=== PATIENT | male | born 1960 | race African-American/Black ===

== ENCOUNTER 2023-01-22 11:32 | Observation (INO) ==
[2023-01-22 11:42] VITALS: BMI 27.1
--- NOTE | 2023-01-22 12:12 | DR.EXTPAIN ---
HPI Time seen Time Seen by Provider: 01/22/23 12:11 PCP Primary Care Physician: MARTINA/ODELL Complaint/Symptoms Chief Complaint:: PT STATES HE HAS BEEN HAVING LEFT HIP PAIN FOR 1 WEEK. STATES HE ALSO HAS AN INFECTED LEFT SHOULDER FROM A SKIN CANCER REMOVAL. FOUL SMELL NOTED FROM AREA. DR. BAIN IN [place] DID THE REMOVAL. Source History Provided: Patient Mode of arrival Mode of Arrival: Ambulatory Timing Onset of Chief Complaint: 01/15/23 PMH PMH Past Medical History: Yes Past Medical History: Hypertension Past Medical History Comment: SKIN CANCER Past Surgical History: Yes Surgical History: Ortho Surgery Past Surgical History Comment: SKIN CANCER REMOVAL Family History History of Family Medical Conditions: Yes Family Medical History: Diabetes Mellitus and Coronary Artery Disease Social History Does patient currently use any type of tobacco product: No Have you used tobacco products in the last 12 months: No Type of Tobacco Use: None Does any household member use tobacco: No Alcohol Use: None Do you use any recreational Drugs:: No Lives With: Family Lives Where: Home Infectious screening In the last 2 months have you had wt loss of >10#?: NO Have you had fever, night sweats or hemotysis?: No Have you traveled outside the country in the last 6 months?: No Isolation: Standard PE Vital Signs Vitals: Temperature 98.2 F Pulse Rate 101 Respiratory Rate 20 Blood Pressure 130/63 O2 Sat by Pulse Oximetry 98 ROR Labs Reviewed Result Diagrams: 01/24/23 05:05 01/24/23 05:05 Laboratory: 01/22/23 14:11 Chest Wound Gram Stain - Final 01/22/23 14:11 Chest Wound Culture - Preliminary WBC 10.4 X10^3/uL (3.6-10.0) H 01/22/23 12:33 RBC 2.65 X10^6/uL (4.7-6.0) L 01/22/23 12:33 Hgb 7.6 g/dL (13.5-18.0) L 01/22/23 12:33 Hct 22.6 % (42.0-54.0) L 01/22/23 12:33 MCV 85.0 fL (80.0-100.0) 01/22/23 12:33 MCH 28.5 pg (27.0-34.0) 01/22/23 12:33 MCHC 33.5 g/dL (33.0-35.0) 01/22/23 12:33 RDW 16.3 % (11.6-16.5) 01/22/23 12:33 Plt Count 575 X10^3/uL (150.0-450.0) H 01/22/23 12:33 MPV 6.4 fL (7.4-11.0) L 01/22/23 12:33 Neut % (Auto) 77.6 % (42.0-75.0) H 01/22/23 12:33 Lymph % (Auto) 11.4 % (21.0-51.0) L 01/22/23 12:33 [place] % (Auto) 6.9 % (0.0-13.0) 01/22/23 12:33 Eos % (Auto) 3.3 % (0.9-2.9) H 01/22/23 12:33 Baso % (Auto) 0.8 % (0.2-1.0) 01/22/23 12:33 Neut # (Auto) 8.1 x10^3/uL (2.2-4.8) H 01/22/23 12:33 Lymph # (Auto) 1.2 X10^3/uL (1.3-2.9) L 01/22/23 12:33 [place] # (Auto) 0.7 x10^3/uL (0.3-0.8) 01/22/23 12:33 Eos # (Auto) 0.3 x10^3/uL (0.0-0.2) H 01/22/23 12:33 Baso # (Auto) 0.1 X10^3/uL (0.0-0.1) 01/22/23 12:33 Absolute Nucleated RBC 0.0 /100WBC 01/22/23 12:33 Sodium 132 mmol/L (136-145) L 01/22/23 12:33 Corrected Sodium TNP 01/22/23 12:33 Potassium 4.0 mmol/L (3.5-5.1) 01/22/23 12:33 Chloride 98 mmol/L (98-107) 01/22/23 12:33 Carbon Dioxide 27.7 mmol/L (21-32) 01/22/23 12:33 BUN 7 mg/dL (7-18) 01/22/23 12:33 Creatinine 1.08 mg/dL (0.70-1.30) 01/22/23 12:33 Est GFR (MDRD) Af Amer > 60 (>60) 01/22/23 12:33 Est GFR (MDRD) Non-Af > 60 (>60) 01/22/23 12:33 Glucose 106 mg/dL (65-99) H 01/22/23 12:33 Lactic Acid 1.0 mmol/L (0.4-2.0) 01/22/23 12:23 Calcium 8.7 mg/dL (8.5-10.1) 01/22/23 12:33 Corrected Calcium 9.7 mg/dL (8.5-10.1) 01/22/23 12:33 Total Bilirubin 1.10 mg/dL (0.2-1.0) H 01/22/23 12:33 AST 13 Units/L (15-37) L 01/22/23 12:33 ALT 18 Units/L (12-78) 01/22/23 12:33 Alkaline Phosphatase 114 Units/L (46-116) 01/22/23 12:33 Total Protein 7.8 g/dL (6.4-8.2) 01/22/23 12:33 Albumin 2.7 g/dL (3.4-5.0) L 01/22/23 12:33 Globulin 5.1 g/dL (2.5-4.5) H 01/22/23 12:33 Albumin/Globulin Ratio 0.5 Ratio (1.1-2.1) L 01/22/23 12:33 Opioid Opioid Risk Tool Total: 0 Total Score Risk Category: Low Risk Copyright: Jesse PUENTES predicting aberrant behaviors Discharge Plan Diagnosis Discharge Problem: Wound infection Discharge Plan Patient Disposition: 09 ADMITTED INPATIENT Condition: Stable
[2023-01-22] MEDS ORDERED: NS 1,000 ML IV 1,000 ML ONE (12:29)
[2023-01-22] MEDS: NS 1,000 ML IV 1,000 ML IV SCH ×2 (12:32→21:04)
[2023-01-22 12:49] LABS: BASOPHILS # (AUTO) 0.1 X10^3/uL (0.0-0.1); BASOPHILS % (AUTO) 0.8 % (0.2-1.0); EOSINOPHILS # (AUTO) 0.3 x10^3/uL (0.0-0.2); EOSINOPHILS % (AUTO) 3.3 % (0.9-2.9); HEMATOCRIT 22.6 % (42.0-54.0); HEMOGLOBIN 7.6 g/dL (13.5-18.0); LYMPHOCYTES # (AUTO) 1.2 X10^3/uL (1.3-2.9); LYMPHOCYTES % (AUTO) 11.4 % (21.0-51.0); MEAN CORPUSCULAR HEMOGLOBIN 28.5 pg (27.0-34.0); MEAN CORPUSCULAR HGB CONC 33.5 g/dL (33.0-35.0); MEAN PLATELET VOLUME 6.4 fL (7.4-11.0); MONOCYTES # (AUTO) 0.7 x10^3/uL (0.3-0.8); MONOCYTES % (AUTO) 6.9 % (0.0-13.0); NEUTROPHILS # (AUTO) 8.1 x10^3/uL (2.2-4.8); NEUTROPHILS % (AUTO) 77.6 % (42.0-75.0); PLATELET COUNT 575 X10^3/uL (150.0-450.0); RED BLOOD COUNT 2.65 X10^6/uL (4.7-6.0); RED CELL DISTRIBUTION WIDTH 16.3 % (11.6-16.5); WHITE BLOOD COUNT 10.4 X10^3/uL (3.6-10.0)
[2023-01-22 12:58] LABS: ALANINE AMINOTRANSFERASE 18 Units/L (12-78); ALBUMIN 2.7 g/dL (3.4-5.0); ALKALINE PHOSPHATASE 114 Units/L (46-116); ASPARTATE AMINO TRANSFERASE 13 Units/L (15-37); BLOOD UREA NITROGEN 7 mg/dL (7-18); CALCIUM 8.7 mg/dL (8.5-10.1); CARBON DIOXIDE 27.7 mmol/L (21-32); CHLORIDE 98 mmol/L (98-107); COR CA(FOR HYPOALB) 9.7 mg/dL (8.5-10.1); CREATININE 1.08 mg/dL (0.70-1.30); GLUCOSE 106 mg/dL (65-99); SODIUM 132 mmol/L (136-145); TOTAL PROTEIN 7.8 g/dL (6.4-8.2); eGFR NON BLACK RACES > 60 (>60)
[2023-01-22] MEDS ORDERED: VANCOMYCIN IV *PREMIX 1 G/200 ML BAG 1 G/200 ML PIGGYBACK IV ONE ×2 (16:29→16:41)
[2023-01-22] MEDS ORDERED: ZOFRAN TAB 4 MG PO PRN (17:17)
[2023-01-22] MEDS ORDERED: NS 1,000 ML IV 1,000 ML IV SCH (17:17)
[2023-01-22] MEDS ORDERED: MORPHINE SULFATE INJ 4 MG IVP PRN (17:17)
[2023-01-22] MEDS: VANCOMYCIN IV *PREMIX 1 G/200 ML BAG 1 G/200 ML PIGGYBACK IV SCH (21:04)
[2023-01-23] MEDS: NS 1,000 ML IV 1,000 ML IV SCH ×6 (01:45→23:41)
--- NOTE | 2023-01-23 02:40 | RAD ---
HISTORYHAVING LEFT HIP PAIN FOR 1 WEEK. STATES HE ALSO HAS AN INFECTED LEFT SHOULDER FROM A SKIN CANCER REMOVAL. Relevant Clinical InformationSTUDYCHEST, 1 VIEWCOMPARISONNoneFINDINGSThe trachea is midline. The cardiac silhouette is mildly enlarged.. The lungs are clear without focal infiltrate or effusion. The bony thorax is unremarkable. Spinal stabilization rods and pedicular screws as well as interbody implant present in the lower thoracic region.IMPRESSIONMild cardiomegalyNo active cardiopulmonary disease.Electronically signed by: Ankush Del Rio (January 23, 2023 02:39:19)
--- NOTE | 2023-01-23 02:41 | RAD ---
HISTORYHAVING LEFT HIP PAIN FOR 1 WEEK. STATES HE ALSO HAS AN INFECTED LEFT SHOULDER FROM A SKIN CANCER REMOVAL. Relevant Clinical InformationSTUDYHIP, LEFTCOMPARISONFINDINGSA single frontal view of the pelvis demonstrates the pelvic ring to be intact. No evidence for acute cortical disruption or dislocation of the hip can be observed. Frog leg views of the hip fails to demonstrate evidence for fracture or significant joint abnormality.IMPRESSIONNegative examElectronically signed by: Ankush Del Rio (January 23, 2023 02:39:41)
[2023-01-23 06:44] LABS: ALANINE AMINOTRANSFERASE 15 Units/L (12-78); ALBUMIN 2.1 g/dL (3.4-5.0); ALKALINE PHOSPHATASE 98 Units/L (46-116); ASPARTATE AMINO TRANSFERASE 11 Units/L (15-37); BLOOD UREA NITROGEN 5 mg/dL (7-18); CALCIUM 7.8 mg/dL (8.5-10.1); CARBON DIOXIDE 25.5 mmol/L (21-32); CHLORIDE 104 mmol/L (98-107); COR CA(FOR HYPOALB) 9.3 mg/dL (8.5-10.1); CREATININE 0.96 mg/dL (0.70-1.30); GLUCOSE 95 mg/dL (65-99); SODIUM 138 mmol/L (136-145); TOTAL PROTEIN 6.4 g/dL (6.4-8.2); eGFR NON BLACK RACES > 60 (>60)
[2023-01-23 06:49] LABS: BASOPHILS # (AUTO) 0.2 X10^3/uL (0.0-0.1); BASOPHILS % (AUTO) 1.7 % (0.2-1.0); EOSINOPHILS # (AUTO) 0.6 x10^3/uL (0.0-0.2); EOSINOPHILS % (AUTO) 7.2 % (0.9-2.9); LYMPHOCYTES # (AUTO) 1.4 X10^3/uL (1.3-2.9); LYMPHOCYTES % (AUTO) 15.3 % (21.0-51.0); MEAN CORPUSCULAR HEMOGLOBIN 28.4 pg (27.0-34.0); MEAN CORPUSCULAR HGB CONC 33.6 g/dL (33.0-35.0); MEAN CORPUSCULAR VOLUME 84.6 fL (80.0-100.0); MEAN PLATELET VOLUME 6.8 fL (7.4-11.0); MONOCYTES # (AUTO) 0.8 x10^3/uL (0.3-0.8); MONOCYTES % (AUTO) 8.8 % (0.0-13.0); PLATELET COUNT 553 X10^3/uL (150.0-450.0); RED BLOOD COUNT 2.22 X10^6/uL (4.7-6.0); RED CELL DISTRIBUTION WIDTH 16.2 % (11.6-16.5)
[2023-01-23 06:56] LABS: HEMATOCRIT 18.8 % (42.0-54.0); HEMOGLOBIN 6.3 g/dL (13.5-18.0)
[2023-01-23] MEDS: VANCOMYCIN IV *PREMIX 1 G/200 ML BAG 1 G/200 ML PIGGYBACK IV SCH ×2 (09:24→21:29)
[2023-01-23] MEDS: VSL#3 PO SCH (09:24)
[2023-01-23] MEDS ORDERED: NS 500 ML IV 500 ML IV ONE (13:58)
--- NOTE | 2023-01-23 15:08 | DR.H&P ---
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 Pt has a known sarcoma that is being followed by his surgeon in [place]. He states that his hip has been hurting him more, reports it as being aching. He denies any trauma. Labs/imaging: Wbc 10.2>9.0, Hgb 7.6>6.3, Na 138, K 4.0, Creatinine 0.96, Glucose 95, Blood/Wound culture pending, CXR and XR left hip has no acute findings. Pt admitted for infection of wound. Will consult general surgery for recommendations, infection appears to be superficial. Restart home medications. Continue IVF NS@125ml/h, received vancomycin in ED, will start on antibiotics: IV levaquin 750mg daily. Anemia today, will transfuse 1 unit packed red blood ce lls. Continue to closely monitor and follow up labs. Past Medical History Past Medical History: Hypertension Past Surgical History Surgical History: Ortho Surgery Family History Family Medical History: Diabetes Mellitus and Coronary Artery Disease Social History Does patient currently use any type of tobacco product: No Have you used tobacco products in the last 12 months: No Type of Tobacco Use: None Does any household member use tobacco: No Alcohol Use: None Drug Use: None Medications Home Medications: No Known Allergies Allergy (Verified 01/22/23 17:33) CONTINUE taking the following medications amlodipine 10 mg tablet 10 mg PO QDAY 01/22/23 [History] hydrocodone 5 mg-acetaminophen 325 mg tablet 1 - 2 tab PO Q6H PRN Pain 01/22/23 [History] ondansetron HCl 8 mg tablet 8 mg PO Q8H PRN nausea/vomiting 01/22/23 [History] Labs Result Diagrams: 01/23/23 05:45 01/23/23 05:45 Labs: 01/22/23 14:11 Chest Wound Gram Stain - Final 01/22/23 14:11 Chest Wound Culture - Preliminary Laboratory WBC 9.0 X10^3/uL (3.6-10.0) 01/23/23 05:45 RBC 2.22 X10^6/uL (4.7-6.0) L 01/23/23 05:45 Hgb 6.3 g/dL (13.5-18.0) L* 01/23/23 05:45 Hct 18.8 % (42.0-54.0) L* 01/23/23 05:45 MCV 84.6 fL (80.0-100.0) 01/23/23 05:45 MCH 28.4 pg (27.0-34.0) 01/23/23 05:45 MCHC 33.6 g/dL (33.0-35.0) 01/23/23 05:45 RDW 16.2 % (11.6-16.5) 01/23/23 05:45 Plt Count 553 X10^3/uL (150.0-450.0) H 01/23/23 05:45 MPV 6.8 fL (7.4-11.0) L 01/23/23 05:45 Neut % (Auto) 67.0 % (42.0-75.0) 01/23/23 05:45 Lymph % (Auto) 15.3 % (21.0-51.0) L 01/23/23 05:45 [place] % (Auto) 8.8 % (0.0-13.0) 01/23/23 05:45 Eos % (Auto) 7.2 % (0.9-2.9) H 01/23/23 05:45 Baso % (Auto) 1.7 % (0.2-1.0) H 01/23/23 05:45 Neut # (Auto) 6.0 x10^3/uL (2.2-4.8) H 01/23/23 05:45 Lymph # (Auto) 1.4 X10^3/uL (1.3-2.9) 01/23/23 05:45 [place] # (Auto) 0.8 x10^3/uL (0.3-0.8) 01/23/23 05:45 Eos # (Auto) 0.6 x10^3/uL (0.0-0.2) H 01/23/23 05:45 Baso # (Auto) 0.2 X10^3/uL (0.0-0.1) H 01/23/23 05:45 Absolute Nucleated RBC 0.0 /100WBC 01/23/23 05:45 Sodium 138 mmol/L (136-145) 01/23/23 05:45 Corrected Sodium TNP 01/23/23 05:45 Potassium 4.0 mmol/L (3.5-5.1) 01/23/23 05:45 Chloride 104 mmol/L (98-107) 01/23/23 05:45 Carbon Dioxide 25.5 mmol/L (21-32) 01/23/23 05:45 BUN 5 mg/dL (7-18) L 01/23/23 05:45 Creatinine 0.96 mg/dL (0.70-1.30) 01/23/23 05:45 Est GFR (MDRD) Af Amer > 60 (>60) 01/23/23 05:45 Est GFR (MDRD) Non-Af > 60 (>60) 01/23/23 05:45 Glucose 95 mg/dL (65-99) 01/23/23 05:45 Lactic Acid 1.0 mmol/L (0.4-2.0) 01/22/23 12:23 Calcium 7.8 mg/dL (8.5-10.1) L 01/23/23 05:45 Corrected Calcium 9.3 mg/dL (8.5-10.1) 01/23/23 05:45 Total Bilirubin 0.90 mg/dL (0.2-1.0) 01/23/23 05:45 AST 11 Units/L (15-37) L 01/23/23 05:45 ALT 15 Units/L (12-78) 01/23/23 05:45 Alkaline Phosphatase 98 Units/L (46-116) 01/23/23 05:45 Total Protein 6.4 g/dL (6.4-8.2) 01/23/23 05:45 Albumin 2.1 g/dL (3.4-5.0) L 01/23/23 05:45 Globulin 4.3 g/dL (2.5-4.5) 01/23/23 05:45 Albumin/Globulin Ratio 0.5 Ratio (1.1-2.1) L 01/23/23 05:45 Blood Type O POSITIVE 01/23/23 09:00 Antibody Screen Negative 01/23/23 09:00 Crossmatch See Detail 01/23/23 09:00 Review of Systems Constitutional: No Symptoms Reported Eyes: No Symptoms Reported ENT: No Symptoms Reported Respiratory: No Symptoms Reported Cardiovascular: No Symptoms Reported Gastrointestinal: No Symptoms Reported Genitourinary: No Symptoms Reported Musculoskeletal: Shoulder Pain (left shoulder sarcoma, superficial purulence ) and Other (left hip pain) Skin: No Symptoms Reported Neurological: No Symptoms Reported Physical Exam Vital Signs: Temperature 98.9 F Pulse Rate [Right Brachial] 104 Pulse Rate 101 Respiratory Rate 18 Blood Pressure [Left Arm] 130/66 Blood Pressure [Right Arm] 132/68 Blood Pressure 130/63 O2 Sat by Pulse Oximetry 96 Oriented: Normal Eyes: Normal Ear: Normal Nose: Normal Throat: Normal Respiratory: Clear Throughout Cardiovascular: Normal : Normal Auscultation: Bowel Sounds: Normal Palpation: Normal Tenderness: Normal Skin: Normal Musculoskeletal: Shoulder (left shoulder large sarcoma noted with superficial malodorous ) Psychiatric: Normal Mood Description: Calm and Appropriate Affect: Normal Speech Pattern: Clear and Appropriate Assessment/Plan (1) Wound infection: Status: Acute Plan: Wound culture pending Continue IV levaquin (2) Anemia: Status: Acute Plan: Transfuse 1 unit packed red blood cells Trend hgb Review H&P Reviewed: Yes Patient was examined?: Yes
[2023-01-23] MEDS: LEVAQUIN PREMIX IV 750 MG 750 MG/150 ML BAG IV SCH (18:40)
[2023-01-23] MEDS ORDERED: PHARMACY COMMENT IV NR (20:30)
[2023-01-23 21:00] LABS: HEMOGLOBIN 7.8 g/dL (13.5-18.0)
[2023-01-23 21:17] LABS: CREATININE 1.01 mg/dL (0.70-1.30); VANCOMYCIN,TROUGH 10.1 ug/mL (15-20)
[2023-01-23] MEDS: RESTORIL CAP 15 MG PO PRN (21:29)
[2023-01-24] MEDS: NS 1,000 ML IV 1,000 ML IV SCH ×4 (05:06→20:34)
[2023-01-24 06:29] LABS: BASOPHILS # (AUTO) 0.1 X10^3/uL (0.0-0.1); BASOPHILS % (AUTO) 0.6 % (0.2-1.0); EOSINOPHILS # (AUTO) 0.5 x10^3/uL (0.0-0.2); EOSINOPHILS % (AUTO) 4.7 % (0.9-2.9); HEMOGLOBIN 7.2 g/dL (13.5-18.0); LYMPHOCYTES # (AUTO) 1.3 X10^3/uL (1.3-2.9); LYMPHOCYTES % (AUTO) 12.6 % (21.0-51.0); MEAN CORPUSCULAR HGB CONC 34.3 g/dL (33.0-35.0); MEAN CORPUSCULAR VOLUME 84.4 fL (80.0-100.0); MEAN PLATELET VOLUME 6.8 fL (7.4-11.0); MONOCYTES # (AUTO) 0.8 x10^3/uL (0.3-0.8); MONOCYTES % (AUTO) 7.6 % (0.0-13.0); NEUTROPHILS # (AUTO) 7.6 x10^3/uL (2.2-4.8); NEUTROPHILS % (AUTO) 74.5 % (42.0-75.0); PLATELET COUNT 517 X10^3/uL (150.0-450.0); RED BLOOD COUNT 2.49 X10^6/uL (4.7-6.0); RED CELL DISTRIBUTION WIDTH 15.6 % (11.6-16.5); WHITE BLOOD COUNT 10.2 X10^3/uL (3.6-10.0)
[2023-01-24 06:47] LABS: ALANINE AMINOTRANSFERASE 12 Units/L (12-78); ALKALINE PHOSPHATASE 92 Units/L (46-116); ASPARTATE AMINO TRANSFERASE 15 Units/L (15-37); BLOOD UREA NITROGEN 5 mg/dL (7-18); CALCIUM 7.9 mg/dL (8.5-10.1); CARBON DIOXIDE 22.3 mmol/L (21-32); CHLORIDE 105 mmol/L (98-107); COR CA(FOR HYPOALB) 9.5 mg/dL (8.5-10.1); CREATININE 0.94 mg/dL (0.70-1.30); GLUCOSE 103 mg/dL (65-99); POTASSIUM 3.9 mmol/L (3.5-5.1); SODIUM 138 mmol/L (136-145); TOTAL PROTEIN 6.4 g/dL (6.4-8.2); eGFR NON BLACK RACES > 60 (>60)
[2023-01-24] MEDS: VSL#3 PO SCH (09:30)
--- NOTE | 2023-01-24 09:53 | PCM.PROG ---
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 Pt has a known sarcoma that is being followed by his surgeon in [place]. This morning her reports feeling a little better. No acute events overnight. Labs/imaging: Wbc 1 0.2, Hgb 7.2, Plt 517, Na 138, K 3.9, Creatinine 0.94, Glucose 103, Blood/Wound culture pending. General surgery consulted, no surgical intervention at this time. Home medications have been resumed. Pt is currently receiving IVF NS@125ml/h and antibiotics: IV levaquin 750mg daily. Hgb responded after transfusing 1 unit packed red blood cells, will order another unit today. Continue to closely monitor and follow up labs. Past Medical Family Social History Allergies: Allergies No Known Allergies Allergy (Verified 01/22/23 17:33) Review of Systems ROS changes noted: See HPI Vital Signs and I&O's Vital Signs: Temperature 98 F Pulse Rate [Right Brachial] 106 Pulse Rate 101 Respiratory Rate 22 Blood Pressure [Left Arm] 127/71 Blood Pressure [Right Arm] 132/68 Blood Pressure 130/63 O2 Sat by Pulse Oximetry 97 Intake and Output: Intake & Output 01/21/23 01/22/23 01/23/23 01/24/23 23:59 23:59 23:59 23:59 Intake Total 951 / 951 5808 / 5808 838 / 838 Output Total 3450 / 3450 600 / 600 Balance 951 / 951 2358 / 2358 238 / 238 Physical Exam Oriented: Normal Eyes: Normal Ear: Normal Nose: Normal Throat: Normal Respiratory: Normal Cardiovascular: Normal : Normal Auscultation: Bowel Sounds: Normal Tenderness: Normal Skin: Normal Musculoskeletal: Shoulder (left shoulder large sarcoma noted with superficial malodorous ) Psychiatric: Normal Mood Description: Calm and Appropriate Affect: Normal Speech Pattern: Clear and Appropriate Laboratory and Diagnostics Result Diagrams: 01/24/23 05:05 01/24/23 05:05 Labs: 01/22/23 14:11 Chest Wound Gram Stain - Final 01/22/23 14:11 Chest Wound Culture - Preliminary Laboratory WBC 10.2 X10^3/uL (3.6-10.0) H 01/24/23 05:05 RBC 2.49 X10^6/uL (4.7-6.0) L 01/24/23 05:05 Hgb 7.2 g/dL (13.5-18.0) L 01/24/23 05:05 Hct 21.0 % (42.0-54.0) L 01/24/23 05:05 MCV 84.4 fL (80.0-100.0) 01/24/23 05:05 MCH 29.0 pg (27.0-34.0) 01/24/23 05:05 MCHC 34.3 g/dL (33.0-35.0) 01/24/23 05:05 RDW 15.6 % (11.6-16.5) 01/24/23 05:05 Plt Count 517 X10^3/uL (150.0-450.0) H 01/24/23 05:05 MPV 6.8 fL (7.4-11.0) L 01/24/23 05:05 Neut % (Auto) 74.5 % (42.0-75.0) 01/24/23 05:05 Lymph % (Auto) 12.6 % (21.0-51.0) L 01/24/23 05:05 [place] % (Auto) 7.6 % (0.0-13.0) 01/24/23 05:05 Eos % (Auto) 4.7 % (0.9-2.9) H 01/24/23 05:05 Baso % (Auto) 0.6 % (0.2-1.0) 01/24/23 05:05 Neut # (Auto) 7.6 x10^3/uL (2.2-4.8) H 01/24/23 05:05 Lymph # (Auto) 1.3 X10^3/uL (1.3-2.9) 01/24/23 05:05 [place] # (Auto) 0.8 x10^3/uL (0.3-0.8) 01/24/23 05:05 Eos # (Auto) 0.5 x10^3/uL (0.0-0.2) H 01/24/23 05:05 Baso # (Auto) 0.1 X10^3/uL (0.0-0.1) 01/24/23 05:05 Absolute Nucleated RBC 0.1 /100WBC 01/24/23 05:05 Sodium 138 mmol/L (136-145) 01/24/23 05:05 Corrected Sodium TNP 01/24/23 05:05 Potassium 3.9 mmol/L (3.5-5.1) 01/24/23 05:05 Chloride 105 mmol/L (98-107) 01/24/23 05:05 Carbon Dioxide 22.3 mmol/L (21-32) 01/24/23 05:05 BUN 5 mg/dL (7-18) L 01/24/23 05:05 Creatinine 0.94 mg/dL (0.70-1.30) 01/24/23 05:05 Est GFR (MDRD) Af Amer > 60 (>60) 01/24/23 05:05 Est GFR (MDRD) Non-Af > 60 (>60) 01/24/23 05:05 Glucose 103 mg/dL (65-99) H 01/24/23 05:05 Lactic Acid 1.0 mmol/L (0.4-2.0) 01/22/23 12:23 Calcium 7.9 mg/dL (8.5-10.1) L 01/24/23 05:05 Corrected Calcium 9.5 mg/dL (8.5-10.1) 01/24/23 05:05 Total Bilirubin 1.00 mg/dL (0.2-1.0) 01/24/23 05:05 AST 15 Units/L (15-37) 01/24/23 05:05 ALT 12 Units/L (12-78) 01/24/23 05:05 Alkaline Phosphatase 92 Units/L (46-116) 01/24/23 05:05 Total Protein 6.4 g/dL (6.4-8.2) 01/24/23 05:05 Albumin 2.0 g/dL (3.4-5.0) L 01/24/23 05:05 Globulin 4.4 g/dL (2.5-4.5) 01/24/23 05:05 Albumin/Globulin Ratio 0.5 Ratio (1.1-2.1) L 01/24/23 05:05 Vancomycin Trough 10.1 ug/mL (15-20) L 01/23/23 20:46 Blood Type O POSITIVE 01/23/23 09:00 Antibody Screen Negative 01/23/23 09:00 Crossmatch See Detail 01/23/23 09:00 Plan (1) Wound infection: Status: Acute Plan: Wound culture pending Continue IV levaquin (2) Anemia: Status: Acute Plan: Transfuse another unit packed red blood cells Trend hgb
[2023-01-24] MEDS: VANCOMYCIN IV *PREMIX 1 G/200 ML BAG 1 G/200 ML PIGGYBACK IV SCH ×2 (10:03→20:34)
[2023-01-24] MEDS: LEVAQUIN PREMIX IV 750 MG 750 MG/150 ML BAG IV SCH (11:41)
[2023-01-24] MEDS: NORVASC TAB 10 MG PO SCH (11:42)
[2023-01-24] MEDS: RESTORIL CAP 15 MG PO PRN (20:34)
[2023-01-24 20:58] LABS: HEMATOCRIT 24.5 % (42.0-54.0); HEMOGLOBIN 8.3 g/dL (13.5-18.0)
[2023-01-25] MEDS: NS 1,000 ML IV 1,000 ML IV SCH ×2 (00:54→05:35)
[2023-01-25] MEDS: VANCOMYCIN IV *PREMIX 1 G/200 ML BAG 1 G/200 ML PIGGYBACK IV SCH (08:57)
[2023-01-25] MEDS: VSL#3 PO SCH (08:57)
[2023-01-25] MEDS: NORVASC TAB 10 MG PO SCH (08:57)
[2023-01-25 09:50] VITALS: BP 117/69
[2023-01-25] MEDS: LEVAQUIN PREMIX IV 750 MG 750 MG/150 ML BAG IV SCH (10:22)
--- NOTE | 2023-01-25 10:41 | W.DIS.FURT ---
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 Pt has a known sarcoma that is being followed by his surgeon in [place]. His hospital/treatment course included: IVF NS@125ml/h and antibiotics: IV levaquin 750mg daily. Labs/imaging: Wbc 10.2, Hgb 8.3, Plt 517, Na 138, K 3.9, Creatinine 0.94, Glucose 103, Wound culture positive for proteus mirabilis and MRSA both susceptible to Levaquin. General surgery consulted, no surgical intervention at this time. Pt was anemic and re ceived 2 units packed red blood cells. Hgb responded and stabilized. Pt responded well to treatments. He was discharged in stable condition. Rx levaquin. Instructed to follow up with his surgeon in [place] in 1 week. Vital Signs: Vital Signs (72 hours) 01/22/23 11:39 01/22/23 17:15 01/22/23 17:15 Temperature 98.2 F 99.0 F Pulse Rate 101 H Pulse Rate [Right Brachial] 116 H Respiratory Rate 20 20 Blood Pressure 130/63 Blood Pressure [Left Arm] Blood Pressure [Right Arm] 184/87 O2 Sat by Pulse Oximetry 98 96 Oxygen Delivery Method Room Air Room Air Room Air 01/22/23 19:00 01/22/23 20:00 01/22/23 23:59 Temperature 98.9 F 98.4 F Pulse Rate Pulse Rate [Right Brachial] 112 H 113 H Respiratory Rate 20 18 Blood Pressure Blood Pressure [Left Arm] 134/69 Blood Pressure [Right Arm] 132/68 O2 Sat by Pulse Oximetry 96 97 Oxygen Delivery Method Room Air Room Air Room Air 01/23/23 01:01 01/23/23 01:31 01/23/23 04:00 Temperature 98.4 F Pulse Rate Pulse Rate [Right Brachial] 104 H Respiratory Rate 18 18 20 Blood Pressure Blood Pressure [Left Arm] 122/65 Blood Pressure [Right Arm] O2 Sat by Pulse Oximetry 96 Oxygen Delivery Method Room Air 01/23/23 08:00 01/23/23 07:00 01/23/23 12:00 Temperature 98.6 F 98.9 F Pulse Rate Pulse Rate [Right Brachial] 110 H 104 H Respiratory Rate 18 18 Blood Pressure Blood Pressure [Left Arm] 128/62 130/66 Blood Pressure [Right Arm] O2 Sat by Pulse Oximetry 98 96 Oxygen Delivery Method Room Air Room Air Room Air 01/23/23 18:37 01/23/23 20:00 01/24/23 00:00 Temperature 100.5 F H 98.2 F Pulse Rate Pulse Rate [Right Brachial] 113 H 110 H Respiratory Rate 20 20 Blood Pressure Blood Pressure [Left Arm] 141/65 125/60 Blood Pressure [Right Arm] O2 Sat by Pulse Oximetry 98 97 Oxygen Delivery Method Room Air Room Air Room Air 01/24/23 04:00 01/24/23 07:00 01/24/23 08:00 Temperature 99.9 F H 98 F Pulse Rate Pulse Rate [Right Brachial] 106 H 106 H Respiratory Rate 20 22 Blood Pressure Blood Pressure [Left Arm] 129/65 127/71 Blood Pressure [Right Arm] O2 Sat by Pulse Oximetry 95 97 Oxygen Delivery Method Room Air Room Air Room Air 01/24/23 12:00 01/24/23 16:00 01/24/23 19:00 Temperature 99.4 F 98.2 F Pulse Rate Pulse Rate [Right Brachial] 107 H 110 H Respiratory Rate 20 18 Blood Pressure Blood Pressure [Left Arm] 123/72 130/69 Blood Pressure [Right Arm] O2 Sat by Pulse Oximetry 96 98 Oxygen Delivery Method Room Air Room Air Room Air 01/24/23 20:00 01/24/23 23:57 01/25/23 03:55 Temperature 98.9 F 98.6 F 98.8 F Pulse Rate Pulse Rate [Right Brachial] 108 H 100 H 66 Respiratory Rate 18 18 18 Blood Pressure Blood Pressure [Left Arm] 135/70 126/60 127/85 Blood Pressure [Right Arm] O2 Sat by Pulse Oximetry 97 98 97 Oxygen Delivery Method Room Air Room Air Room Air Labs: Laboratory Last Values WBC 10.2 X10^3/uL (3.6-10.0) H 01/24/23 05:05 RBC 2.49 X10^6/uL (4.7-6.0) L 01/24/23 05:05 Hgb 8.3 g/dL (13.5-18.0) L 01/24/23 20:32 Hct 24.5 % (42.0-54.0) L 01/24/23 20:32 MCV 84.4 fL (80.0-100.0) 01/24/23 05:05 MCH 29.0 pg (27.0-34.0) 01/24/23 05:05 MCHC 34.3 g/dL (33.0-35.0) 01/24/23 05:05 RDW 15.6 % (11.6-16.5) 01/24/23 05:05 Plt Count 517 X10^3/uL (150.0-450.0) H 01/24/23 05:05 MPV 6.8 fL (7.4-11.0) L 01/24/23 05:05 Neut % (Auto) 74.5 % (42.0-75.0) 01/24/23 05:05 Lymph % (Auto) 12.6 % (21.0-51.0) L 01/24/23 05:05 [place] % (Auto) 7.6 % (0.0-13.0) 01/24/23 05:05 Eos % (Auto) 4.7 % (0.9-2.9) H 01/24/23 05:05 Baso % (Auto) 0.6 % (0.2-1.0) 01/24/23 05:05 Neut # (Auto) 7.6 x10^3/uL (2.2-4.8) H 01/24/23 05:05 Lymph # (Auto) 1.3 X10^3/uL (1.3-2.9) 01/24/23 05:05 [place] # (Auto) 0.8 x10^3/uL (0.3-0.8) 01/24/23 05:05 Eos # (Auto) 0.5 x10^3/uL (0.0-0.2) H 01/24/23 05:05 Baso # (Auto) 0.1 X10^3/uL (0.0-0.1) 01/24/23 05:05 Absolute Nucleated RBC 0.1 /100WBC 01/24/23 05:05 Sodium 138 mmol/L (136-145) 01/24/23 05:05 Corrected Sodium TNP 01/24/23 05:05 Potassium 3.9 mmol/L (3.5-5.1) 01/24/23 05:05 Chloride 105 mmol/L (98-107) 01/24/23 05:05 Carbon Dioxide 22.3 mmol/L (21-32) 01/24/23 05:05 BUN 5 mg/dL (7-18) L 01/24/23 05:05 Creatinine 0.94 mg/dL (0.70-1.30) 01/24/23 05:05 Est GFR (MDRD) Af Amer > 60 (>60) 01/24/23 05:05 Est GFR (MDRD) Non-Af > 60 (>60) 01/24/23 05:05 Glucose 103 mg/dL (65-99) H 01/24/23 05:05 Lactic Acid 1.0 mmol/L (0.4-2.0) 01/22/23 12:23 Calcium 7.9 mg/dL (8.5-10.1) L 01/24/23 05:05 Corrected Calcium 9.5 mg/dL (8.5-10.1) 01/24/23 05:05 Total Bilirubin 1.00 mg/dL (0.2-1.0) 01/24/23 05:05 AST 15 Units/L (15-37) 01/24/23 05:05 ALT 12 Units/L (12-78) 01/24/23 05:05 Alkaline Phosphatase 92 Units/L (46-116) 01/24/23 05:05 Total Protein 6.4 g/dL (6.4-8.2) 01/24/23 05:05 Albumin 2.0 g/dL (3.4-5.0) L 01/24/23 05:05 Globulin 4.4 g/dL (2.5-4.5) 01/24/23 05:05 Albumin/Globulin Ratio 0.5 Ratio (1.1-2.1) L 01/24/23 05:05 Vancomycin Trough 10.1 ug/mL (15-20) L 01/23/23 20:46 Blood Type Cancelled 01/24/23 10:57 Antibody Screen Cancelled 01/24/23 10:57 Crossmatch See Detail 01/24/23 10:57 Reason For Visit: INFECTED LEFT UPPER CHEST WOUND INFECTION. Discharge Date Discharge Date: 01/25/23 Discharge Diagnosis All Active Problems (Updated 01/23/23 @ 15:07 by Vargas Baca) Anemia (Acute) Wound infection (Acute) Plan of Treatment: Continue with present treatment and follow up plan. Pt is to keep follow up appointment as instructed and take medications as ordered. Discharge Medications Discharge Medications: No Known Allergies Allergy (Verified 01/22/23 17:33) CONTINUE taking the following medications amlodipine 10 mg tablet 10 mg PO QDAY 01/22/23 [History] hydrocodone 5 mg-acetaminophen 325 mg tablet 1 - 2 tab PO Q6H PRN Pain 01/22/23 [History] ondansetron HCl 8 mg tablet 8 mg PO Q8H PRN nausea/vomiting 01/22/23 [History] New Prescriptions levofloxacin 750 mg tablet 750 mg PO QDAY #10 tabs 01/25/23 [Rx] Discharge Disposition Assessment: No acute distress noted at time of discharge. 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 Pt has a known sarcoma that is being followed by his surgeon in [place]. His hospital/treatment course included: IVF NS@125ml/h and antibiotics: IV levaquin 750mg daily. Labs/imaging: Wbc 10.2, Hgb 8.3, Plt 517, Na 138, K 3.9, Creatinine 0.94, Glucose 103, Wound culture positive for proteus mirabilis and MRSA both susceptible to Levaquin. General surgery consulted, no surgical intervention at this time. Pt was anemic and received 2 units packed red blood cells. Hgb responded and stabilized. Pt responded well to treatments. He was discharged in stable condition. Rx levaquin. Instructed to follow up with his surgeon in [place] in 1 week. Patient Disposition: 01 HOME, SELF-CARE Condition: Stable Health Concerns: Post Hospitalization: new medications and changes needed to prevent readmission or further decline. Pt educated and given instructions on all concerns. Care Plan Goals: Problem: Pain/Alteration in Comfort Goal: Improve/ Resolve Pain; Achieve Pain Tolerance Instructions: Take pain medications as prescribed. Contact your primary care provider if your pain is unrelieved or worsens. Follow up with primary care provider as directed. Plan of Treatment: Continue with present treatment and follow up plan. Pt is to keep follow up appointment as instructed and take medications as ordered. Assessment: No acute distress noted at time of discharge. Prescriptions: New levofloxacin 750 mg Tablet 750 mg PO QDAY Qty: 10 0RF No Action hydrocodone-acetaminophen 5-325 mg tablet 1 - 2 tab PO Q6H PRN (Reason: Pain) ondansetron HCl 8 mg tablet 8 mg PO Q8H PRN (Reason: nausea/vomiting) amlodipine 10 mg tablet 10 mg PO QDAY Orders to Discharge Patient Discharge Orders: Discharge (Routine); Ordered 01/25/23 Ordered By: Vargas Baca Follow ups/Referrals Follow ups/Referrals: [facility],None [Primary Care Provider] - 3 days Instructions Instructions: Anemia, Wound Infection, [id number], You've Been Prescribed an Antibiotic in the Hospital for an Infection - [facility] Activity Restrictions/Additional Instructions: Keep follow up appointments with Oncology. Stand Alone Forms: Excuse From Work or School
== END 2023-01-25 12:45 | disposition home or self-care (01) ==
LOC: ER 11:32 → MED/SURG 11:32
PROVIDERS: ADMIT Family Medicine; ATTEND Family Medicine